=== PATIENT | male | born 1980 | race Caucasian/White ===

== ENCOUNTER 2019-05-05 23:44 | Emergency (ER) | payer OTHER, SELFPAY ==
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
[2019-05-05 23:44] VITALS: BP 170/95; PULSE 120; RESP 20; TEMP 36.8; O2SAT 100
--- NOTE | 2019-05-05 23:54 | ECG_ITS ---
Measurements Intervals [place] Rate: 107 P: 68 NE: 144 QRS: 79 QRSD: 101 T: 53 QT: 325 QTc: 435 Interpretive Statements SINUS TACHYCARDIA ABNORMAL ECG Electronically Signed On 05-06-2019 8:29:49 CDT by Shadi Villatoro D.O.
[2019-05-06] VITALS: BP 164/93; PULSE 111; RESP 24; O2SAT 99
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
--- NOTE | 2019-05-06 00:10 | PC.NURSE ---
Pt adamantly refusing to wear c-collar that was placed on arrival. States I know there isn't nothing wrong with my neck . Dr Martinez attempting to explain risks and benefits of c-collar. Pt states I'm fine, I just need my hand fixed . Pt signed AMA for wearing c-collar.
[2019-05-06 00:20] VITALS: BP 149/104; PULSE 101; RESP 18; O2SAT 98
[2019-05-06] MEDS: TETANUS,DIPHTHERIA,AC PERTUSSIS ADULT 0.5 ML (ADACEL) IM (00:22)
[2019-05-06 00:30] VITALS: BP 163/93; PULSE 109; RESP 20; O2SAT 97
[2019-05-06 00:40] VITALS: BP 165/96; PULSE 101; RESP 18; O2SAT 96
== END 2019-05-06 00:40 | disposition short-term general hospital (02) ==
PROVIDERS: Emergency Provider Family Medicine; PCP Physician Assistant
DX: S62.601B Fracture of unspecified phalanx of left index finger, initial encounter for open fracture (principal); S20.211A Contusion of right front wall of thorax, initial encounter; S01.80XA Unspecified open wound of other part of head, initial encounter; V89.2XXA Person injured in unspecified motor-vehicle accident, traffic, initial encounter
CPT/HCPCS: 71045; 72170; 73130; 90471; 90715; 93005; 96374; 99284; 99285; J0690; L0150